=== PATIENT | male | born 1975 | race American Indian/Alaskan Native ===

== ENCOUNTER 2018-11-02 18:58 | Inpatient (IN) | payer OTHER ==
[~2018-11-02] VITALS: Ht 177.8 cm; Wt 143.2 kg
[~2018-11-02 18:58] MED LIST: KEFLEX500 MG PO; TRAMADOL HCL50 MG PO; TYLENOL325 MG PO
--- NOTE | 2018-11-02 20:13 | NUR ---
ARIS REMOVED PRIOR TO TAKING PATIENT FROM THE TRAUAMA ROOM IN ER, GIVEN TO
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
--- NOTE | 2018-11-02 22:23 | NUR ---
11/02/18 222 Jonas Rogel 214 PT ARRIVED TO PACU. VITALS OBTAINED. PT SNORING. DRESSING TO R UPPER THIGH AND L UPPER THIGH C/D/I. GARDNER IN PLACE. URINE OBTAINED FOR DRUG SCREEN, TAKEN TO LAB. 2210 IR[address] RICKETTS CRNA AT BEDSIDE. PT EYES CLOSED, SNORING. ABLE TO ANSWER SIMPLE QUESTIONS WHEN ASKED. O2 DECREASED TO 6L, 02 100%.
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
--- NOTE | 2018-11-02 22:50 | NUR ---
Patient arrived to unit via hospital bed. Breathing is even and unlabored, SpO2 96% on RA, RR 24, all vitals WNL. Arouses easily to voice, alert and oriented to all questions, follows commands appropriately. HR WNL, peripheral pulses well felt in all extremities, capillary refill is brisk, < 2 seconds in bilateral lower extremities, warm to touch, patient reports numbness and tingling in legs, able to move legs without difficulty. Lungs are clear, bowel tones ACx4, denies nausea, reports feeling hungry. Donaldson catheter present, draining clear yellow urine. Dressings to bilateral legs present, no drainage noted. IV sites in left arm intact, DC'd IV in right AC due to infiltration. IVF started per Dr. Arellano's order. RN remains at bedside to finish admission.
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
--- NOTE | 2018-11-03 01:21 | NUR ---
Per Roe LEON, confirmed that ancef and t-dap were given in ED.
--- NOTE | 2018-11-03 01:50 | NUR ---
Assisted to bathroom, SBA, gait steady, denies feeling light headed or dizzy with ambulation, patient had unseen BM. Now resting in bed again, breathing is unlabored. Denies further needs at this time. Reports 5/10 pain in both surgical sites, denies need for pain medication at this time. CMS intact, numbness and tingling has resolved, dorsialis pedis pulses 3/3, cap refill <3 seconds. Dressings to BLE intact, no drainage noted. Call light within reach, IVF infusing per order, henning intact.
--- NOTE | 2018-11-03 02:29 | NUR ---
Patient restful with eyes closed, breathing is even and unlabored, FLACC 0. Call light within reach.
--- NOTE | 2018-11-03 03:30 | NUR ---
Patient remains restful with eyes closed, FLACC 0. Call light within reach.
--- NOTE | 2018-11-03 04:30 | NUR ---
Restful with eyes closed, eyes open easily to voice, alert and oriented. Assessment done, no change from previous. Dorsialis pedis pulses 3/3, cap refill < 3 seconds to BLE, no motor impairment, numbness and tingling has resolved, warm to touch BLE. Dressings to BLE intact, no blood or orther drainage noted. Denies needs at this time, states pain is "very tolerable." Call light within reach, IVF infusing per order.
--- NOTE | 2018-11-03 05:30 | NUR ---
Patient remains restful with eyes closed, FLACC 0. Call light within reach.
--- NOTE | 2018-11-03 08:20 | NUR ---
PT IS AWAKE AND ALERT X4, PT IS ABLE TO ANSWER QUESTIONS APPROPRIATLY. WHEN QUESTIONED ABOUT PAIN, PT STATES "IT'S ABOUT THE SAME IT HAS BEEN". PT AGREABLE TO TAKING PO IBUPROFEN FOR PAIN MANAGEMENT WITH LATER EXPECTED AMBULATION. PT ABLE TO WASH FACE AND HANDS WITH WARM WASHCLOTH. SCD'S IN PLACE, PT ABLE TO FEEL FEET AND TOES, PULSES BILAT FEET PALPABLE. PT DENIES NUMBNESS OR TINGLING, NAUSEA, AND SOB. PT INTERESTED IN EATING BREAKFAST. IV SITES INTACT, NO REDNESS OR SWELLING, FLUIDS AND FLUSHES INFUSE EASILY.
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
--- NOTE | 2018-11-03 08:59 | NUR ---
PT SITTING UP IN BED EATING BREAKFAST AT THIS TIME.
--- NOTE | 2018-11-03 10:40 | NUR ---
PATIENT AMBULATED TO BATHROOM WAS STANDY ASSIST. PATIENT URINATED AND AMBULATED BACK TO BED. RN NEERAJ AND I CHANGED OUT BED LINENS AND PATIENT GOWN. BANDAGES ON BILATERAL THIGHS ARE IN PLACE. SMALL AMOUNT OF SANGENOUS DRAINAGE NOTICED ON RIGHT POSTERIOR LATERAL RUSSELL WRAP. PATIENT IS BACK IN BED EATING HIS SECOND BREAKFAST WITH AT BEDSIDE. PATIENT HAS HAD FAMILY MEMBERS CALLING AND VISITING HIM THROUGHOUT THE MORNING. VITAL SIGNS WNL.
--- NOTE | 2018-11-03 12:15 | NUR ---
PT ALERT AND ORIENTED X4, COOPERATIVE. PT C/O PAIN 3/10 IN BILAT LEGS, 650 MG PO TYLENOL GIVEN. PT PULSES PALPABLE IN BILAT FEET, SCD'S IN PLACE, PT DENIES NUMBNESS AND TINGLING. PT DENIES NAUSEA AND SOB AT THIS TIME. PT LUNCH ORDERED. VITALS WNL. DRESSINGS INTACT, MODERATE AMOUNT OF DRAINAGE NOTED ON RT DRESSING, SCANT DRAINAGE SOAKING INTO RITA. SCANT SHADOWING NOTED ON LEFT BANDAGE.
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
--- NOTE | 2018-11-03 13:26 | NUR ---
PT UP AND AMBULATING TO THE RESTROOM. PT ONE PERSON STANDBY ASSIST. PT REMAINS COOPERATIVE AND POLITE. USES CALL LIGHT APPROPRIATLY. PT ABLE TO EAT 100% OF LUNCH.
--- NOTE | 2018-11-03 13:35 | NUR ---
PT AMBULATED BACK TO BED INDEPENDENTLY. PT ABLE TO VOID, FORGOT TO USE URINAL, UNMEASURED VOID. SCD'S IN PLACE.
--- NOTE | 2018-11-03 14:10 | NUR ---
IN TO ROUND ON PT. PT ALERT AND ORIENTED X4, REPORTS "I'M FEELING GREAT, I'M READY TO GO HOME". PT REQUESTS PAIN MEDICATION AND NICOTINE LOZENGE. PT GIVEN PO 600 MG IBUPROFEN AND A FERNANDO LOZENGE.
--- NOTE | 2018-11-03 16:15 | NUR ---
IV SITES INTACT, NO REDNESS OR SWELLING NOTED, FLUSH EASILY. PT RESTING QUIETLY AT THIS TIME. VITALS WNL.
[2018-11-03] MEDS ORDERED: OXYCODONE HCL5 MG PO (16:58)
[2018-11-03] MEDS ORDERED: IBUPROFEN600 MG PO (16:58)
[2018-11-03] MEDS ORDERED: NICORETTE4 M2 BUCCAL (16:58)
[2018-11-03] MEDS ORDERED: TYLENOL325 MG PO (16:59)
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
--- NOTE | 2018-11-03 17:10 | NUR ---
PATIENT STATES PAIN HAS INCREASED SINCE REMOVAL OF THE WOUND PACKING BUT REFUSES ANY PAIN MEDICATION AT THIS TIME. PATIENT STATES PAIN IS A 6 OUT OF 10 BUT IS TOLERABLE.
--- NOTE | 2018-11-03 17:34 | NUR ---
PT GIVEN DISCHARGE INSTRUCTIONS PRINTED OUT, ALSO REVIEWED WITH RN AT BEDSIDE. PT VERBALIZES UNDERSTANDING OF INSTRUCTIONS, ALL QUESTIONS ANSWERED.
== END 2018-11-03 18:00 | disposition home or self-care (01) | DRG 571 ==
LOC: ED 18:58 → CCU 19:21 → MS 19:21 → CCU 22:58
PROVIDERS: ADMIT Surgery
PROC: 0JBL0ZZ Excision of Right Upper Leg Subcutaneous Tissue and Fascia, Open Approach (ICD-10-PCS; 2018-11-02)
PROC: 0JCL0ZZ Extirpation of Matter from Right Upper Leg Subcutaneous Tissue and Fascia, Open Approach (ICD-10-PCS; 2018-11-02)
PROC: 3E0234Z Introduction of Serum, Toxoid and Vaccine into Muscle, Percutaneous Approach (ICD-10-PCS; 2018-11-02)
PROC: 0JCM0ZZ Extirpation of Matter from Left Upper Leg Subcutaneous Tissue and Fascia, Open Approach (ICD-10-PCS; principal; 2018-11-02 19:40)
PROC: 0JBM0ZZ Excision of Left Upper Leg Subcutaneous Tissue and Fascia, Open Approach (ICD-10-PCS; 2018-11-02 19:40)
DX: S71.132A Puncture wound without foreign body, left thigh, initial encounter (principal); Z68.42 Body mass index [BMI] 45.0-49.9, adult; S71.131A Puncture wound without foreign body, right thigh, initial encounter; F19.10 Other psychoactive substance abuse, uncomplicated; E66.01 Morbid (severe) obesity due to excess calories; F17.200 Nicotine dependence, unspecified, uncomplicated; Y22.XXXA Handgun discharge, undetermined intent, initial encounter; Z23 Encounter for immunization
CPT/HCPCS: 36415; 73552; 80048; 80053; 82150; 82550; 83690; 85025; 86850; 86900; 86901; 86920; 99284-25; G0480; J0330; J1100; J1885; J2250; J2405; J2704; J3475; J7120

== ENCOUNTER 2020-02-14 22:39 | Emergency (ER) | payer OTHER ==
[~2020-02-14] VITALS: Ht 177.8 cm; Wt 122.5 kg
[~2020-02-14 22:39] MED LIST changes: +CIPRO500 MG PO; +IBUPROFEN600 MG PO; +NICORETTE4 M2 BUCCAL; +OXYCODONE HCL5 MG PO; +XARELTO15 MG PO
--- OUTSIDE RECORDS SUMMARY | 2020-02-14 22:42 | XMS ---
PreManage Notification: ANNETTE WORRELL Security Group Manager Events No recent Security Events currently on file CRITERIA MET - [facility] - Has Care Guidelines CARE PROVIDERS GLORIA WERNER Nurse Practitioner 11/20/2018-Current PHONE: [phone] Ruchi has no Care Guidelines for this patient. Care History Medical/Surgical 11/20/2018 [facility] \T\middot;\T\nbsp; PATIENT IS A [employer] MEMBER. \T\middot;\T\nbsp; PLEASE REFER PATIENT TO [facility] FOR NON EMERGENT MEDICAL NEEDS. \T\middot;\ T\nbsp; [facility] CAN SEE PATIENTS SAME DAY FOR APTS IF PATIENT CALLS FIRST THING IN THE MORNING. E.D. VISIT COUNT (12 MO.) [address] [place] [address] TOTAL 1 NOTE: Visits indicate total known visits. ED/UCC VISIT TRACKING (12 MO.) 02/14/2020 22:[address] [facility] [place] TYPE: Emergency COMPLAINT: - FACIAL PAIN INPATIENT VISIT TRACKING (12 MO.) No inpatient visits to display in this time frame [email or web address]
== END 2020-02-14 23:38 | disposition left against medical advice (07) ==
LOC: ED 22:39
DX: Z53.21 Procedure and treatment not carried out due to patient leaving prior to being seen by health care provider (principal)

== ENCOUNTER 2021-02-27 11:23 | Emergency (ER) | payer OTHER ==
[~2021-02-27] VITALS: Ht 177.8 cm; Wt 117.9 kg
== END 2021-02-27 13:46 | disposition home or self-care (01) ==
LOC: ED 11:23
DX: B34.9 Viral infection, unspecified (principal); Z20.822 Contact with and (suspected) exposure to COVID-19; F17.200 Nicotine dependence, unspecified, uncomplicated
CPT/HCPCS: 99283; C9803; U0003

== ENCOUNTER 2021-07-31 13:23 | Emergency (ER) | payer OTHER ==
[~2021-07-31] VITALS: Ht 177.8 cm; Wt 152.0 kg
== END 2021-07-31 15:06 | disposition home or self-care (01) ==
LOC: ED 13:23
DX: J20.9 Acute bronchitis, unspecified (principal); Z20.822 Contact with and (suspected) exposure to COVID-19; F17.200 Nicotine dependence, unspecified, uncomplicated
CPT/HCPCS: 71045; 99283-25; C9803; U0003

== ENCOUNTER 2022-03-13 20:47 | Emergency (ER) | payer OTHER ==
[~2022-03-13] VITALS: Ht 177.8 cm; Wt 147.8 kg
[2022-03-13] MEDS ORDERED: ANTIVERT25 M1 PO (22:35)
== END 2022-03-13 22:53 | disposition home or self-care (01) ==
LOC: ED 20:47
DX: R42 Dizziness and giddiness (principal); E66.9 Obesity, unspecified; F17.200 Nicotine dependence, unspecified, uncomplicated
CPT/HCPCS: 36415; 70450; 80053; 85025; 85379; 99284-25; A9270

== ENCOUNTER 2023-08-05 10:44 | Emergency (ER) | payer OTHER ==
[~2023-08-05] VITALS: Ht 177.8 cm; Wt 140.9 kg
[~2023-08-05 10:44] MED LIST changes: +ANTIVERT25 M1 PO; +VENTOLIN HFA18 GM INH
[2023-08-05] MEDS ORDERED: PENICILLIN V P500 MG PO (11:30)
[2023-08-05 11:40] VITALS: BP 136/72
== END 2023-08-05 11:39 | disposition home or self-care (01) ==
LOC: ED 10:44
DX: K08.89 Other specified disorders of teeth and supporting structures (principal); F17.200 Nicotine dependence, unspecified, uncomplicated
CPT/HCPCS: 99282; A9270

== ENCOUNTER 2023-08-08 06:16 | Emergency (ER) | payer OTHER ==
[~2023-08-08] VITALS: Ht 177.8 cm; Wt 140.6 kg
[~2023-08-08 06:16] MED LIST changes: +PENICILLIN V P500 MG PO
[2023-08-08 06:49] LABS: BASOPHILS 0.6 % (0-2); EOSINOPHILS 1.5 % (0-6); HEMATOCRIT 41.2 % (35.0-50.0); HEMOGLOBIN 13.8 g/dL (12.0-18.0); LYMPHOCYTES 16.8 % (24-44); MCH 30.2 (27-36); MCHC 33.5 g/dl (30-36); MONOCYTES 9.6 % (0-12); NEUTROPHILS 71.5 % (39-80); PLATELET COUNT 345 K/uL (140-440); RBC 4.58 M/ul (4.3-5.7); RDW 13.8 (10.5-15.0)
[2023-08-08 07:05] LABS: ALBUMIN 2.9 g/dL (3.4-5.0); ALBUMIN/GLOBULIN RATIO 0.66 (1.1-2.4); ANION GAP 12.5 (7-21); BILIRUBIN, TOTAL 0.7 ng/dL (0.2-1.0); BUN/CREATININE RATIO 12.82 (6.0-28.6); CREATININE, SERUM 1.17 mg/dL (0.70-1.30); POTASSIUM 4.5 mmol/L (3.5-5.1); PROTEIN, TOTAL 7.3 g/dL (6.4-8.2)
[2023-08-08] MEDS ORDERED: HYDROCODON-ACE1 EA11 PO (08:03)
[2023-08-08] MEDS ORDERED: AMOX TR-K CLV1 EAC1 PO (08:26)
[2023-08-08 08:43] VITALS: BP 124/84
== END 2023-08-08 08:43 | disposition home or self-care (01) ==
LOC: ED 06:16
PROVIDERS: Family Medicine
DX: K04.7 Periapical abscess without sinus (principal); F17.200 Nicotine dependence, unspecified, uncomplicated
CPT/HCPCS: 36415; 70487; 80053; 85025; 96375; 99283-25; J0295; J1885; J2270; Q9967

== ENCOUNTER 2024-06-14 23:09 | Emergency (ER) | payer OTHER ==
[~2024-06-14] VITALS: Ht 177.8 cm; Wt 139.9 kg
[~2024-06-14 23:09] MED LIST changes: +AMOX TR-K CLV1 EAC1 PO; +HYDROCODON-ACE1 EA11 PO
[2024-06-14] MEDS ORDERED: MORPHINE SULFATE 4 MG/ML VIAL IV ONE (23:15)
[2024-06-14] MEDS ORDERED: ASPIRIN 81 MG CHEW PO ONE (23:15)
[2024-06-14] MEDS ORDERED: VITAMIN D-40010 MCG PO (23:18)
[2024-06-14 23:36] LABS: HEMATOCRIT 43.5 % (35.0-50.0); HEMOGLOBIN 14.5 g/dL (12.0-18.0); PLATELET COUNT 300 K/uL (140-440); RBC 4.81 M/ul (4.3-5.7)
[2024-06-14 23:38] LABS: BASOPHILS 0.8 % (0-2); EOSINOPHILS 2.4 % (0-6); LYMPHOCYTES 28.2 % (24-44); MCH 30.2 (27-36); MCHC 33.5 g/dl (30-36); MCV 90.3 fl (81-99); MONOCYTES 8.7 % (0-12); NEUTROPHILS 59.9 % (39-80); RDW 14.5 (10.5-15.0)
[2024-06-14 23:43] LABS: INR 0.98 (0.80-1.30); PROTIME 12.3 Sec (11.2-14.2)
[2024-06-14 23:59] LABS: ALBUMIN 3.3 g/dL (3.4-5.0); ALBUMIN/GLOBULIN RATIO 0.79 (1.1-2.4); ANION GAP 12.9 (7-21); BILIRUBIN, TOTAL 0.6 ng/dL (0.2-1.0); BUN/CREATININE RATIO 14.15 (6.0-28.6); CALCIUM 8.3 mg/dL (8.5-10.1); CREATININE, SERUM 1.06 mg/dL (0.70-1.30); MAGNESIUM 1.8 mg/dL (1.8-2.4); POTASSIUM 3.9 mmol/L (3.5-5.1); PROTEIN, TOTAL 7.5 g/dL (6.4-8.2)
[2024-06-15] MEDS ORDERED: CYCLOBENZAPRINE10 MG PO (01:03)
[2024-06-15] MEDS ORDERED: CYCLOBENZAPRINE HCL 10 MG HOME.PACK PO ONE (01:15)
[2024-06-15 01:30] VITALS: BP 135/75
--- NOTE | 2024-06-17 12:14 | EKG ---
[facility] [address] [facility] [place] [address] Signed Sinus rhythm with occasional premature ventricular complexes Otherwise normal ECG No previous ECGs available Confirmed by Giselle Song MD ([id number]) on 06/17/2024 12:14:42 PM Electronically Signed By: GISELLE SONG DO 06/17/24 1214 PATIENT NAME: ANNETTE WORRELL Electrocardiogram DATE OF : 75 PHYSICIAN: GISELLE SONG DO REPORT #: [id number] REPORT IS CONFIDENTIAL AND NOT TO BE RELEASED WITHOUT AUTHORIZATION
== END 2024-06-15 01:30 | disposition home or self-care (01) ==
LOC: ED 23:09
PROVIDERS: Family Medicine
DX: R07.89 Other chest pain (principal); E66.9 Obesity, unspecified; F17.290 Nicotine dependence, other tobacco product, uncomplicated
CPT/HCPCS: 36415; 71045; 80053; 83735; 83880; 84484; 85025; 85045; 85060; 85384; 85610; 93005; 93010; 99285-25; A9270

== ENCOUNTER 2025-05-31 22:42 | Emergency (ER) | payer OTHER | END 2025-06-01 01:10 | disposition left against medical advice (07) | LOC: ED 22:42 | DX: R60.0 Localized edema (principal); F17.200 Nicotine dependence, unspecified, uncomplicated ==